=== PATIENT | male | born 1950 | race Caucasian/White ===

== ENCOUNTER → 2016-11-10 | Outpatient (CLI) | payer MEDICARE, OTHER ==
[~2016-11-10] MED LIST: DITROPAN XL10 MG PO; HCTZ 25MG TAB25 MG PO; LIPITOR 10MG10 MG PO; LOTENSIN 1010 MG/TAB PO; PRINIVIL20 MG PO; TEGRETOL 1100 MG/TAB PO
== END ==
LOC: COL.VAS 09:45
DX: Z01.812 Encounter for preprocedural laboratory examination (principal); Z86.718 Personal history of other venous thrombosis and embolism

== ENCOUNTER → 2016-11-21 | Outpatient (REF) ==
[2016-11-21 04:56] LABS: INR 1.2 (0.8-3.0); PROTHROMBIN TIME 12.8 SECONDS (9.7-12.8)
== END ==
LOC: ZMSC 04:46
PROVIDERS: Orthopaedic Surgery
DX: Z01.89 Encounter for other specified special examinations (principal)